=== PATIENT | female | born 2000 ===

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

== ENCOUNTER 2022-05-02 22:53 | Emergency (ER) | payer BC | END 2022-05-02 23:55 | disposition left against medical advice (07) | LOC: MW.ED 22:53 | DX: Z53.21 Procedure and treatment not carried out due to patient leaving prior to being seen by health care provider (principal) ==

== ENCOUNTER 2022-12-20 12:53 | Emergency (ER) | payer BC ==
[2022-12-20] MEDS ORDERED: Azithromycin 250 MG Tab PO ONE (15:17)
[2022-12-20] MEDS ORDERED: Ibuprofen 600 MG Tab PO ONE (15:18)
[2022-12-20] MEDS ORDERED: Ibuprofen 600 MG Tab ONE (15:27)
[2022-12-20] MEDS ORDERED: Azithromycin 250 MG Tab ONE (15:27)
== END 2022-12-20 15:34 | disposition home or self-care (01) ==
LOC: MW.ED 12:53
DX: H66.91 Otitis media, unspecified, right ear (principal)
CPT/HCPCS: 99282; A9270